=== PATIENT | female | born 1975 | race Caucasian/White ===

== ENCOUNTER 2018-04-27 10:45 | Outpatient (CLI) | payer OTHER ==
[~2018-04-27 10:45] MED LIST: ACIDOPHILUS1 EAC3 PO; IMODIUM A-D2 MG PO; LEVSIN/SL0.125 MG PO; PEPCID40 MG PO; PHENERGAN25 MG PO; ZANTAC150 MG PO; ZOFRAN4 MG PO
== END 2018-04-27 12:54 | disposition home or self-care (01) ==
LOC: MRI 10:45
DX: M25.462 Effusion, left knee (principal)
CPT/HCPCS: 73721

== ENCOUNTER 2018-12-08 09:48 | Outpatient (CLI) | payer OTHER | END 2018-12-08 17:00 | disposition home or self-care (01) | LOC: SONOGRAMA 09:48 | DX: E03.8 Other specified hypothyroidism (principal); K80.80 Other cholelithiasis without obstruction ==

== ENCOUNTER 2019-01-22 09:38 | Outpatient (CLI) | payer OTHER | END 2019-01-22 11:02 | disposition home or self-care (01) | LOC: SONOGRAMA 09:38 | DX: E04.2 Nontoxic multinodular goiter (principal) ==

== ENCOUNTER 2019-06-13 08:03 | Emergency (ER) | payer OTHER ==
[~2019-06-13] VITALS: Ht 154.9 cm; Wt 61.2 kg
[2019-06-13] MEDS ORDERED: XOFLUZA40 MG PO (10:31)
== END 2019-06-13 11:14 | disposition home or self-care (01) ==
LOC: ER 08:03
DX: B34.9 Viral infection, unspecified (principal); R50.9 Fever, unspecified

== ENCOUNTER → 2021-02-26 12:36 | Outpatient (CLI) | payer OTHER ==
[~2021-02-26 12:36] MED LIST changes: +XOFLUZA40 MG PO
== END | disposition home or self-care (01) ==
LOC: LAB 12:36
PROVIDERS: ATTEND Obstetrics & Gynecology
DX: Z20.818 Contact with and (suspected) exposure to other bacterial communicable diseases (principal); Z20.828 Contact with and (suspected) exposure to other viral communicable diseases